=== PATIENT | male | born 1985 | race Two or more races ===

== ENCOUNTER 2025-02-03 08:28 | Emergency (ER) | payer MEDICAID ==
[~2025-02-03] VITALS: Ht 175.3 cm; Wt 95.2 kg
--- NOTE | 2025-02-03 09:19 | Physician Documentation ---
History of Present Illness ~ Chief Complaint: See Chief Complaint Stated Complaint: SCRATCHED BY A SQUIRREL Time Seen by MD: 08:58 OK to notify your PCP?: Yes HPI 39-year-old male presenting after a squirrel by that occurred two days ago. Patient states that he went to help release a squirrel that was stuck in some netting and the scrotal got scared and bit him on his left hand 4th digit. He states that he had a couple puncture wounds that bled for a little bit and then it stopped. He states that since then he has felt fine but is concerned that she does not develop a infection and also states that he has not had a tetanus s hot in the past 10 years. No other complaints. Tetanus within 5 years?: No Medication Reconciliation Allergies: Coded Allergies: shellfish derived (Verified Allergy, Unknown, 02/03/25) Past Medical History Past Medical History: No Pertinent History Review of Systems All Other Systems at this time: Reviewed and Negative Physical Exam Vital Signs: Temperature: 96.7, Source: Temporal, Heart Rate: 75, Respiratory Rate: 18, BP: 134/83, Pulse Oximetry: 98, Weight: 95.200 Physical Exam I have reviewed the triage vitals. CONST: Well developed and well nourished. In no acute distress HENT: Head Atraumatic EYES: Pupils are equal, round and reactive to light. Normal conjunctiva NECK: Normal range of motion. Supple. CARDIO: Normal rate and regular rhythm. No murmurs, rubs, or gallops. S1, S2. PULM/CHEST: No respiratory distress. Lungs clear to auscultation. No wheeze ABD: Soft and nontender. Nondistended. Bowel sounds normal. No guarding. : Exam deferred MSK: No edema. No deformity. Left hand 4th digit with two nonbleeding healing bite blake over the distal phalanx, there is normal range of motion of the finger and normal sensation. NEURO: Alert and oriented to person, place and time. Moving all extremities SKIN: Warm and dry. PSYCH: Normal mood and affect. Good eye contact. Progress Results/Orders Results/Orders Completed Orders - BRANDON PERKINS MD Tetanus/Pertuss/Diph Acell/Pf (Boostrix (02/03/25 09:15) Medications Received in ER Medications (Trade) Dose Ordered Sig/Jose F Route PRN Reason Start Time Stop Time Status Last Admin Dose Admin (Boostrix vaccine syringe) 0.5 ml ONCE ONCE IMVAC 02/03/25 09:15 02/03/25 09:16 DC 02/03/25 09:24 0.5 ML Vital Signs 02/03/25 08:34 Temp 96.7 Pulse 75 Resp 18 B/P (MAP) 134/83 Pulse Ox 98 Medical Decision Making Additional Comment 39-year-old male presenting with a squirrel bite to his left hand 4th digit. Wound is healing and there is no indication for any repair. The wound was cleansed. His tetanus was updated. I will prescribe him Augmentin for three days for prophylaxis. I advised him to take the medication as prescribed and monitor for any signs of redness or discharge from the wound. Follow up with PCP in the next 2-3 days or return to the ED with any worsening symptoms. Departure Disposition: 01 HOME / SELF CARE / HOMELESS Impression: Primary Impression: Bitten by squirrel Discharge Instructions: Animal Bite, Adult Additional Instructions: Monitor wound for any signs of redness, drainage or bleeding. Monitor for improvement and resolution. Follow up with primary care physician or return to the ED with any worsening symptoms. Referrals: NO PRIMARY CARE PROVIDER (PCP) Prescriptions Amox Tr/Potassium Clavulanate 875/125 MG (Augmentin 875/125 MG) 875 Mg-125 Mg Tablet 1 TAB PO BID for 3 Days, #6 TAB Prov: BRANDON PERKINS MD 02/03/25 Signature Scribe Signature: 1 Attestation: 1 BRANDON PERKINS MD Feb 03, 2025 09:19
[2025-02-03] MEDS: TETanus/Pertussis (Acell)/Diphther VAC/PF (Tdap-Adult) 0.5ml syringe IMVAC ONE (09:24)
[2025-02-03] MEDS ORDERED: AMOX-580 PO (09:28)
[2025-02-03 09:41] VITALS: BP 131/80; PULSE 62; RESP 15; TEMP 96.7; O2SAT 99
== END 2025-02-03 09:38 | disposition home or self-care (01) ==
LOC: ER 08:29
DX: S61.255A Open bite of left ring finger without damage to nail, initial encounter (principal); W53.21XA Bitten by squirrel, initial encounter; Y93.89 Activity, other specified; Y92.89 Other specified places as the place of occurrence of the external cause; Y99.8 Other external cause status
CPT/HCPCS: 90471; 90715; 99283